=== PATIENT | male | born 1990 | race Asian ===

== ENCOUNTER 2016-11-11 00:13 | Emergency (ER) | payer BC, OTHER ==
[~2016-11-11] VITALS: Ht 177.8 cm; Wt 90.0 kg
[2016-11-11 00:18] VITALS: Ht 177.8 cm; Wt 90.0 kg
[2016-11-11] MEDS ORDERED: LORA-186 PO (01:20)
[2016-11-11] MEDS ORDERED: IBUP-1542 PO (01:20)
[2016-11-11] MEDS ORDERED: PROM5SYR2 PO (01:20)
--- NOTE | 2016-11-11 04:49 | ERD ---
ER Documentation Chief Complaint Date/Time DATE: 11/11/16 TIME: 04:47 Chief Complaint cough x 1 week w/ fever episodes HPI This is a 26-year-old male presenting to the emergency room complaining of cough and on and off fever for the past week. Patient admits to having a lot of nasal congestion and rhinorrhea. Patient denies any nausea, vomiting, diarrhea, abdominal pain. Patient states that he has tried night DayQuil and NyQuil. He states that his last dose of NyQuil was at 10 PM. ROS All systems reviewed and are negative except as per history of present illness. Medications Home Meds Active Scripts Ibuprofen* (Ibuprofen*) 600 Mg Tablet, 600 MG PO Q6H Y for PAIN, #30 TAB Prov:CEFERINO PLEITEZ PA-C 11/11/16 Promethazine HCl/Codeine (Prometh-Codein 6.25-10 mg/5 ml) 5 Ml Syrup, 5 ML PO Q6 for COUGH, #90 Prov:CEFERINO PLEITEZ PA-C 11/11/16 Loratadine* (Claritin*) 10 Mg Tablet, 10 MG PO DAILY, #20 TAB Prov:CEFERINO PLEITEZ PA-C 11/11/16 PMhx/Soc Medical and Surgical Hx: pt denies Medical Hx, pt denies Surgical Hx History of Surgery: No Anesthesia Reaction: No Hx Neurological Disorder: No Hx Respiratory Disorders: No Hx Cardiac Disorders: No Hx Psychiatric Problems: No Hx Miscellaneous Medical Probl: No Hx Alcohol Use: No Hx Substance Use: No Hx Tobacco Use: No Smoking Status: Never smoker Physical Exam Vitals Vital Signs Date Time Temp Pulse Resp B/P Pulse Ox O2 Delivery O2 Flow Rate FiO2 11/11/16 00:18 97.9 84 20 151/79 99 Physical Exam GENERAL: well-developed/well-nourished, in no apparent distress, non-toxic appearing HEAD: NC/AT, no swelling noted in frontal or maxillary areas EARS: bilateral tympanic membrane is intact without erythema or effusion NARES: naresd congested THROAT: oropharynxnon erythematous without exudates, no tonsil enlargement, post nasal drip EYES: Conjunctiva normal NECK: Supple, no lymphadenopathy PULM: CTA bilaterally, no rales, rhonchi, or wheezing heard CV: Normal S1S2, RRR, good capillary refill GI: Soft, non-distended, normal bowel sounds, non-tender BACK: No midline tenderness, no masses EXT No clubbing, cyanosis, or edema NEURO: Alert and Orientated SKIN: Intact, normal turgor PSYCH: Normal mood and mentation Procedures/MDM This is a 26-year-old male presenting to the emergency room complaining of cough for the past week which is likely due to a viral upper respiratory infection. Patient's lungs were clear on examination. He was afebrile and appeared well. I have a low suspicion for pneumonia, pleural effusion, otitis media, strep pharyngitis. Patient has stable vital signs for discharge. Prescription for promethazine with codeine, ibuprofen, Claritin was provided. I discussed return to the ER for any worsening signs or symptoms. Patient understands and agrees with this plan Departure Diagnosis: Primary Impression: URI (upper respiratory infection) Condition: Stable Patient Instructions: Preventing Common Respiratory Infections, Uri, Viral, No Abx (Adult) Referrals: NO PRIMARY,CARE PHYSICIAN [facility] YOU HAVE RECEIVED A MEDICAL SCREENING EXAM AND THE RESULTS INDICATE THAT YOU DO NOT HAVE A CONDITION THAT REQUIRES URGENT TREATMENT IN THE EMERGENCY DEPARTMENT. FURTHER EVALUATION AND TREATMENT OF YOUR CONDITION CAN WAIT UNTIL YOU ARE SEEN IN YOUR DOCTORS OFFICE WITHIN THE NEXT 1-2 DAYS. IT IS YOUR RESPONSIBILITY TO MAKE AN APPOINTMENT FOR FOLOW-UP CARE. IF YOU HAVE A PRIMARY DOCTOR --you should call your primary doctor and schedule an appointment IF YOU DO NOT HAVE A PRIMARY DOCTOR YOU CAN CALL OUR PHYSICIAN REFERRAL HOTLINE AT IF YOU CAN NOT AFFORD TO SEE A PHYSICIAN YOU CAN CHOSE FROM THE FOLLOWING [facility] [id number] [facility]. [facility] [address] [facility] [address] [facility] [facility] [address] [facility]. [facility] [address] [facility] [facility] Additional Instructions: FOLLOW UP WITH YOUR PRIMARY CARE PHYSICIAN TOMORROW.Return to this facility if you are not improving as expected. Take all medicines as directed. Return to this facility if you are not improving as expected. You have been given a medicine which may cause drowsiness.DO NOT DRIVE OR OPERATE DANGEROUS MACHINERY while taking this medicine! CEFERINO PLEITEZ PA-C Nov 11, 2016 04:49
== END 2016-11-11 02:35 | disposition home or self-care (01) ==
LOC: FTE 00:13
DX: J06.9 Acute upper respiratory infection, unspecified (principal)
CPT/HCPCS: 99283

== ENCOUNTER → 2018-08-13 | Outpatient (CLI) | END | disposition home or self-care (01) ==

== ENCOUNTER 2018-12-21 01:11 | Emergency (ER) | payer BC ==
[~2018-12-21] VITALS: Ht 180.3 cm; Wt 94.7 kg
[~2018-12-21 01:11] MED LIST: IBUP-1542 PO; LORA-186 PO; PROM5SYR2 PO
[2018-12-21 01:18] VITALS: BP 136/68; PULSE 80; RESP 18; Ht 180.3 cm; Wt 94.7 kg
[2018-12-21] MEDS ORDERED: KETOROLAC 30 MG INJ IM STA (02:08)
--- NOTE | 2018-12-21 02:13 | ERD ---
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 Stated that this started after he got injured while walking down, stated that this started at around 10:50 PM today, while at [employer], walking down, rolled his right ankle. Denies head injury, loss of consciousness, dizziness, neck pain, neck stiffness, difficulty swallowing unlabored breathing lying flat, shoulder pain, chest pain, back pain, abdominal pain, nausea, vomiting, confusion, diarrhea, urinary symptoms, loss of bowel bladder control, calf pain, numbness or tingling sensation, fever, chills, seizures. No known drug allergies. No past medical history. No surgeries. Does not take any prescription medication at home. ROS All systems reviewed and are negative except as per history of present illness. Medications Home Meds Active Scripts Ibuprofen* (Motrin*) 800 Mg Tab, 800 MG PO Q6H PRN for PAIN, #30 TAB Prov:GENEVA BRADFORD 12/21/18 Ibuprofen* (Ibuprofen*) 600 Mg Tablet, 600 MG PO Q6H PRN for PAIN, #30 TAB Prov:CEFERINO PLEITEZ PA-C 11/11/16 Promethazine HCl/Codeine (Prometh-Codein 6.25-10 mg/5 ml) 5 Ml Syrup, 5 ML PO Q6 for COUGH, #90 Prov:CEFERINO PLEITEZ PA-C 11/11/16 Loratadine* (Claritin*) 10 Mg Tablet, 10 MG PO DAILY, #20 TAB Prov:CEFERINO PLEITEZ PA-C 11/11/16 Allergies Allergies: Coded Allergies: No Known Allergy (Unverified , 12/21/18) PMhx/Soc Medical and Surgical Hx: pt denies Medical Hx, pt denies Surgical Hx History of Surgery: No Anesthesia Reaction: No Hx Neurological Disorder: No Hx Respiratory Disorders: No Hx Cardiac Disorders: No Hx Psychiatric Problems: No Hx Miscellaneous Medical Probl: No Hx Alcohol Use: Yes (SOCIAL) Hx Substance Use: No Hx Tobacco Use: No Physical Exam Vitals Vital Signs Date Temp Pulse Resp B/P (MAP) Pulse Ox O2 O2 Flow FiO2 Time Delivery Rate 12/21/18 98.7 80 18 136/68 97 01:18 (90) Physical Exam Const: No acute distress Head: Atraumatic Eyes: Normal Conjunctiva ENT: Normal External Ears, Nose and Mouth. Neck: Full range of motion. No meningismus. Resp: Clear to auscultation bilaterally Cardio: Regular rate and rhythm, no murmurs Abd: Soft, non tender, non distended. Normal bowel sounds Skin: No petechiae or rashes Back: No midline or flank tenderness Ext: No cyanosis, or edema. Right ankle has swelling with no obvious deformity but is pain to range of motion. Right ankle's skin is intact. Right pedal pulse is good. Right foot has no obvious deformity but has mild tenderness to palpation dorsally. Right toes are unremarkable. Distal part of the right tibia and fibula has tenderness to palpation. Right calf is no tender ness. Right knee is unremarkable. Bilateral hips are stable and unremarkable. Left lower extremity is unremarkable. No neurovascular deficit. Neur: Awake and alert. No neurological deficits.. Psych: Normal Mood and Affect Results 24 hrs Current Medications Medications Dose Sig/Davina Start Time Status Last (Trade) Ordered Route PRN Stop Time Admin Dose Reason Admin Ketorolac 30 mg ONCE STAT 12/21/18 DC 12/21/18 Tromethamine IM 02:08 02:32 (Toradol) 12/21/18 02:10 Procedures/MDM Diagnostic tests: X-ray of the right foot: X-ray of the right ankle: X-ray of the right tibia and fibula: Treatment: Toradol IM. Bryon wrap. Crutches with crutch training was provided. Re-evaluation: No neurovascular deficit prior to and after the application of Bryon wrap. Differential diagnosis I have low suspicion for compartment syndrome, Lisfranc fracture, displaced fracture, DVT. Final diagnosis: Ankle sprain. Ankle contusion. Prescription: Motrin. Flexeril. Follow-up with PCP in the next 24-48 hours. PCP to refer patient to orthopedic doctor in the next 3-4 days. Come back here in the emergency department for any new symptoms or any worsening symptoms. All questions and concerns were answered. Patient and family members verbalized understanding and agreed with plan of care. Hemodynamically stable on discharge. Departure Diagnosis: Primary Impression: Fall Additional Impression: Ankle sprain Condition: Stable Additional Instructions: Follow-up with PCP in the next 24-48 hours. PCP to refer patient to orthopedic doctor in the next 3-4 days. Come back here in the emergency department for any new symptoms or any worsening symptoms. GENEVA BRADFORD Dec 21, 2018 02:13
[2018-12-21] MEDS ORDERED: IBUP800T48 PO (04:36)
== END 2018-12-21 04:53 | disposition home or self-care (01) ==
LOC: FTE 01:11
DX: S93.401A Sprain of unspecified ligament of right ankle, initial encounter (principal); W18.39XA Other fall on same level, initial encounter; Y92.9 Unspecified place or not applicable
CPT/HCPCS: 73590; 73610; 73630; 96372; 99284; J1885